=== PATIENT | female | born 1975 | race Caucasian/White ===

== ENCOUNTER 2022-01-31 10:56 | Emergency (ER) | payer BC, SELFPAY ==
[2022-01-31 10:57] VITALS: BP 140/80; PULSE 99; RESP 16; TEMP 36.9; O2SAT 98; BMI 21.6
--- NOTE | 2022-01-31 10:59 | NURSING ---
NO OLD EKGS
[2022-01-31 11:08] VITALS: BP 116/86; PULSE 82; RESP 15; O2SAT 99
--- NOTE | 2022-01-31 11:17 | EKG12_ITS ---
Test Reason : CP Blood Pressure : / mmHG Vent. Rate : 099 BPM Atrial Rate : 099 BPM P-R Int : 116 ms QRS Dur : 070 ms QT Int : 370 ms P-R-T Axes : 067 052 070 degrees QTc Int : 474 ms Normal sinus rhythm Nonspecific ST and T wave abnormality Prolonged QT Abnormal ECG Confirmed by SABA FORMAN, CHUNG ([id number]), supervising editor trailer LANA SANTANA ([id number]) on 02/01/2022 2:31:35 P M Referred By: GWENDOLYN Confirmed By:ALMITA WALTER MD
--- NOTE | 2022-01-31 11:18 | ED.VIS.CHEST ---
HPI History of Present Illness Chief Complaint: Chest Pain Informant: patient Narrative Narrative: 46-year-old female presenting to the emergency department chief complaint of chest pain. She states over the past couple weeks she has had an achiness in her chest that has waxed and waned a little bit but is mostly stayed in the center of her chest. It does not radiate. No associated nausea or vomiting. She notes that she was sick in December took a long time for her lungs to get better. She notes a familial history of heart disease but does not know when their heart disease started. She has been doing a lot of yard work and has not noticed a change in exercise tolerance. There is no change with eating and drinking. She has been under a significant amount of stress. [facility] Medical History (Updated 01/31/22 @ 12:[address] Sylvester Whitman DO) Hypothyroid Home Medications levothyroxine 100 mcg tablet 100 mcg PO DAILY 01/31/22 [History Last Taken Unknown] pantoprazole 40 mg tablet,delayed release (Protonix) 40 mg PO DAILY #14 tabs 01/31/22 [Rx Last Taken Unknown] Allergy/AdvReac Type Severity Reaction Status Date / Time No Known Allergies Allergy Verified 01/31/22 10:58 Social History (Updated 01/31/22 @ 11:[address] Sylvester Whitman DO) Smoking Status: Never smoker substance use type: does not use ROS ROS ED Constitutional Constitutional ED: Denies chills or weight loss Eyes Eyes: Denies change in vision or diplopia ENT ENT ED: Denies ear pain, rhinorrhea or sore throat Cardiovascular Cardiovascular: Reports as per HPI and chest pain; Denies orthopnea, palpitations or racing heartbeat Respiratory/Chest Respiratory/Chest: Denies cough, dyspnea or orthopnea Gastrointestinal Gastrointestinal: Denies abdominal pain, diarrhea, nausea or vomiting Genitourinary Genitourinary ED: Denies dysuria, hematuria or urinary frequency Musculoskeletal Musculoskeletal: Denies arthralgias or myalgias Integumentary Denies abscess or rash Neurologic Neurologic: Denies headache(s) or weakness Psychiatric Psychiatric: Denies anxiety, depression, suicidal ideation or suicidal thoughts Endocrine Endocrinology: Denies polydipsia, polyphagia or polyuria Allergic/Immunologic Allergic/Immunologic ED: Denies mouth swelling, tongue swelling or urticaria EXAM Physical Exam Const Vital Signs: 01/31/22 10:57 01/31/22 11:08 01/31/22 11:08 Temperature 98.5 F Temperature Source Temporal Pulse Rate 99 82 Respiratory Rate 16 15 Respiratory Effort Normal Non-Labored Blood Pressure 140/80 H 116/86 H Blood Pressure Mean 100 96 Pulse Ox 98 99 Oxygen Delivery Method Room Air Room Air Positive well nourished and well developed General Appearance ED: well developed HEENT Reports normocephalic, head/scalp atraumatic and moist mucous membranes Eyes PERRL and EOMs intact bilaterally Neck no lymphadenopathy, supple and no JVD Resp normal respiratory effort and clear to auscultation bilaterally Cardio regular rate, regular rhythm and no murmurs GI normal to inspection, nondistended, normoactive bowel sounds and non-tender Palpation: soft Back/Spine no CVA tenderness and normal ROM Extremity normal to inspection General Extremety ED: Negative for edema General Extremity: Negative for edema Neuro oriented x3 and CN's II-XII intact bilaterally Sensorium / Orientation: alert Motor Exam: strength 5/5 throughout Psych mental status grossly normal Mood & Affect: Negative for depressed or tearful Skin no rashes or lesions noted and no wounds MDM MDM MDM Narrative Medical decision making narrative: My interpretation of the chest x-ray is no acute process. Troponin is 4. TSH is low at 0.35. CBC and BMP otherwise negative. No events on the monitor. Patient I believe can be discharged home. Question could this be esophagitis versus reflux. I will place her on Protonix and have her follow-up with her primary care. Return if worsening or concerns Lab Data Attestation: I reviewed the patient's lab results. Labs: Laboratory Results - last 24 hr 01/31/22 01/31/22 01/31/22 11:20 11:20 11:20 WBC 6.1 RBC 4.71 Hgb 14.6 Hct 41.9 MCV 89.0 MCH 31.0 MCHC 34.8 RDW Std Deviation 38.9 RDW Coeff of Cynthia 12.0 Plt Count 224 MPV 9.6 Immature Gran % (Auto) 0.200 Neut % (Auto) 54.5 Lymph % (Auto) 34.0 Cole % (Auto) 9.2 Eos % (Auto) 1.3 Baso % (Auto) 0.8 Absolute Neuts (auto) 3.3 Absolute Lymphs (auto) 2.07 Nucleated RBC % 0 Sodium 140 Potassium 3.7 Chloride 107 Carbon Dioxide 27.0 Anion Gap 6 BUN 12 Creatinine 0.80 Estim Creat Clear Calc 79.07 Est GFR (MDRD) Af Amer 100 Est GFR (MDRD) Non-Af 82 BUN/Creatinine Ratio 15.1 Glucose 99 Calcium 9.4 Troponin I High Sens 4 TSH 0.35 L Radiography Diagnostic Testing: Clinical Impression(s) from Imaging Studies Chest X-Ray 01/31/22 11:22 IMPRESSION: Hyperinflation. The lungs are clear. Electronically Signed: Delvin Lamar MD at 12:02 EDT , EKG Initial EKG: Attestation: I personally reviewed and interpreted this EKG as follows: Comments: Normal sinus rhythm with a ventricular rate of 99 bpm. Discharge Plan Triage Chief Complaint: Chest Pain ED Provider: Sylvester Whitman Dx/Rx/DC Orders Clinical Impression: Chest pain, Hypothyroid Instructions: Esophagitis, ED Chest Pain, Uncertain Cause Prescriptions: New pantoprazole [Protonix] 40 mg tablet,delayed release (DR/EC) 40 mg PO DAILY Qty: 14 0RF No Action levothyroxine 100 mcg Tablet 100 mcg PO DAILY Primary Care Provider: Kerrie May Referrals: Kerrie May DO [Primary Care Provider] - 1-2 Weeks Disposition Disposition: Home, Self Care
--- NOTE | 2022-01-31 11:22 | RAD_ITS ---
STUDY: X-RAY CHEST REASON FOR EXAM: Female, 46 years old. Chest pain TECHNIQUE: Single AP portable view of the chest. COMPARISON: None. FINDINGS: EKG electrodes are seen. Hyperinflation. The lungs are clear. There is no demonstrated pleural abnormality. Normal size heart. Normal mediastinum and yakov. Normal visualized pulmonary arteries. Normal visualized aortic arch and descending thoracic aorta. Normal visualized thoracic spine. Normal visualized ribs, clavicles, and shoulders. There is no demonstrated abnormality of the visualized soft tissue structures of the upper abdomen. RAD/Chest 1 View (Portable) IMPRESSION: Hyperinflation. The lungs are clear. Electronically Signed: Delvin Lamar MD at 12:02 EDT ,
[2022-01-31 11:30] LABS: Absolute Lymphocyte Count 2.07 X10^3/uL (0.83-4.51); Absolute Neutrophil Count 3.3 X10^3/uL (2.0-7.7); Basophil# 0.05 X10^3/uL; Basophil% 0.8 % (0-1); Eosinophil# 0.08 X10^3/uL; Eosinophils% 1.3 % (0-5); Hematocrit 41.9 % (37-47); Hemoglobin 14.6 g/dL (12.0-15.0); Lymphocyte # 2.07 X10^3/ul (0.83-4.51); Mean Corp Hgb Conc 34.8 g/dL (32-36); Mean Platelet Vol. 9.6 fl (6.2-12.0); Monocyte# 0.56 X10^3/uL; Monocyte% 9.2 % (0-10); NRBC Flagged by Analyzer 0 % (0-5); Neutrophil # 3.31 X10^3/uL (2.7-7.7); Neutrophil % 54.5 % (47-70); Platelet Count 224 K/mm3 (150-450); RBC Distribution Width SD 38.9 fl (35.1-43.9); Red Blood Count 4.71 M/mm3 (4.2-5.4); White Blood Count 6.1 K/mm3 (4.4-11.0)
[2022-01-31 11:46] LABS: Anion Gap 6 (5-15); BUN 12 mg/dL (7-18); BUN/Creat Ratio 15.1 RATIO (10-20); Calcium,Total 9.4 mg/dL (8.5-10.1); Chloride 107 mmol/L (98-107); EST Glomerular Filtration Rate 82 mL/min (>60); Est Glom Filt Rate - Afr Amer 100 mL/min (>60); Estimated Creatinine Clearance 79.07 ml/min; Glucose 99 mg/dL (74-106); Potassium 3.7 mmol/L (3.5-5.1); Sodium Level 140 mmol/L (136-145); Troponin-I HS 4 pg/mL (3.0-54.0)
[2022-01-31 12:21] LABS: Thyroid Stim Hormone (TSH) 0.35 uIU/mL (0.358-3.74)
[2022-01-31 13:10] VITALS: BP 113/67; PULSE 71; RESP 16; O2SAT 99
== END 2022-01-31 13:10 | disposition home or self-care (01) ==
PROVIDERS: Emergency Provider Emergency Medicine; PCP Family Medicine; Visit Provider Emergency Medicine
DX: R07.9 Chest pain, unspecified (principal); E03.9 Hypothyroidism, unspecified; Z79.890 Hormone replacement therapy; Z79.899 Other long term (current) drug therapy
CPT/HCPCS: 71045; 80048; 84443; 84484; 85025; 93005; 99284